=== PATIENT | male | born 1950 | race Caucasian/White ===

== ENCOUNTER 2019-07-18 14:20 | Inpatient (IN) | payer MEDICARE, OTHER ==
[~2019-07-18] VITALS: Ht 172.7 cm; Wt 93.9 kg
[2019-07-18 14:52] VITALS: BP 127/73
[2019-07-18 15:01] VITALS: BP 127/73
[2019-07-18 16:00] VITALS: BP 136/85
[2019-07-18] MEDS ORDERED: APIX5TAB MT (17:18)
[2019-07-18] MEDS ORDERED: CHOL200041 (17:18)
[2019-07-18] MEDS ORDERED: CLON0.2T MT (17:18)
[2019-07-18] MEDS ORDERED: FURO40TA5 MT (17:35)
[2019-07-18] MEDS ORDERED: CARV25TA47 MT (17:35)
[2019-07-18] MEDS ORDERED: DIGO250T79 MT (17:35)
[2019-07-18] MEDS ORDERED: GLIP5TAB12 MT (17:35)
[2019-07-18 18:00] VITALS: BP 132/81
[2019-07-18] MEDS ORDERED: BLOOD SUGAR DIAGNOSTIC STRIP TEST SCH (18:00)
[2019-07-18 19:02] LABS: BASOPHILS % 1.4 % (0.0-2.0); EOSINOPHILS % 3.1 % (0.0-5.0); HEMATOCRIT. 45.3 % (42.0-52.0); HEMOGLOBIN. 14.9 g/dL (14.0-18.0); LYMPHOCYTES % 14.3 % (20.0-50.0); MEAN CORPUSCULAR HEMOGLOBIN 30.8 pg (28.0-32.0); MEAN CORPUSCULAR VOLUME 93.9 fL (80.0-94.0); MEAN PLATELET VOLUME 8.6 fl (7.4-10.4); MONOCYTES % 5.5 % (2.0-8.0); NEUTROPHILS % 75.7 % (40.0-76.0); PLATELET 136 x1000/uL (130-400); RED BLOOD CELL COUNT 4.83 mill/uL (4.7-6.1); RED CELL DISTRIBUTION WIDTH 16.3 % (11.6-14.6)
[2019-07-18 20:00] VITALS: BP 124/76
[2019-07-18] MEDS: INSULIN LISPRO 100 UNITS/ML SUBCUT SCH (21:00)
[2019-07-18] MEDS: MILRINONE 20MG-DEXT 5% PREMIX 100 ML IV SCH ×2 (21:18→21:41)
[2019-07-18] MEDS: ATORVASTATIN CALCIUM 10MG TABLET PO SCH (21:18)
[2019-07-18] MEDS: BLOOD SUGAR DIAGNOSTIC STRIP TEST SCH (21:29)
[2019-07-18 22:00] VITALS: BP 122/52
[2019-07-19] VITALS (13 sets, daily range): BP systolic 105–147; BP diastolic 55–91
[2019-07-19] MEDS: MILRINONE 20MG-DEXT 5% PREMIX 100 ML IV SCH ×3 (05:04→23:25)
[2019-07-19] MEDS: BLOOD SUGAR DIAGNOSTIC STRIP TEST SCH ×4 (06:42→21:00)
[2019-07-19] MEDS: INSULIN LISPRO 100 UNITS/ML SUBCUT SCH ×4 (06:42→21:00)
[2019-07-19 07:03] LABS: EOSINOPHILS % 4.8 % (0.0-5.0); HEMATOCRIT. 42.9 % (42.0-52.0); HEMOGLOBIN. 14.3 g/dL (14.0-18.0); LYMPHOCYTES % 13.7 % (20.0-50.0); MEAN CORPUSCULAR VOLUME 92.8 fL (80.0-94.0); MEAN PLATELET VOLUME 8.6 fl (7.4-10.4); MONOCYTES % 13.6 % (2.0-8.0); NEUTROPHILS % 66.9 % (40.0-76.0); PLATELET 126 x1000/uL (130-400); RED BLOOD CELL COUNT 4.62 mill/uL (4.7-6.1); RED CELL DISTRIBUTION WIDTH 15.8 % (11.6-14.6)
[2019-07-19] MEDS: ENOXAPARIN 30MG/0.3ML SYR SUBCUT SCH (09:00)
[2019-07-19] MEDS: LOSARTAN POTASSIUM 25 MG TABLET PO SCH ×2 (09:01→17:36)
[2019-07-19] MEDS: AMLODIPINE 5MG TABLET PO SCH ×2 (09:01→23:26)
[2019-07-19] MEDS: FUROSEMIDE 40MG/4ML VIAL IVP SCH ×2 (09:01→17:36)
[2019-07-19] MEDS: ACETAMINOPHEN 325MG TABLET PO PRN (11:47)
[2019-07-19] MEDS: GLIPIZIDE 5MG TABLET PO SCH (17:36)
[2019-07-19] MEDS: ATORVASTATIN CALCIUM 10MG TABLET PO SCH (23:25)
[2019-07-20] VITALS (13 sets, daily range): BP systolic 113–138; BP diastolic 59–98
[2019-07-20] MEDS: ACETAMINOPHEN 325MG TABLET PO PRN ×3 (04:35→21:54)
[2019-07-20] MEDS: ENOXAPARIN 30MG/0.3ML SYR SUBCUT SCH ×3 (04:43→21:46)
[2019-07-20] MEDS: GLIPIZIDE 5MG TABLET PO SCH ×2 (06:02→16:56)
[2019-07-20] MEDS: MILRINONE 20MG-DEXT 5% PREMIX 100 ML IV SCH ×2 (06:05→16:52)
[2019-07-20] MEDS: INSULIN LISPRO 100 UNITS/ML SUBCUT SCH ×4 (06:06→21:00)
[2019-07-20] MEDS: BLOOD SUGAR DIAGNOSTIC STRIP TEST SCH ×4 (06:06→21:46)
[2019-07-20 06:37] LABS: EOSINOPHILS % 6.4 % (0.0-5.0); HEMATOCRIT. 43.1 % (42.0-52.0); HEMOGLOBIN. 14.3 g/dL (14.0-18.0); LYMPHOCYTES % 13.7 % (20.0-50.0); MEAN CORPUSCULAR HEMOGLOBIN 30.9 pg (28.0-32.0); MEAN CORPUSCULAR VOLUME 93.3 fL (80.0-94.0); MEAN PLATELET VOLUME 8.4 fl (7.4-10.4); MONOCYTES % 13.5 % (2.0-8.0); NEUTROPHILS % 65.4 % (40.0-76.0); PLATELET 125 x1000/uL (130-400); RED BLOOD CELL COUNT 4.62 mill/uL (4.7-6.1); RED CELL DISTRIBUTION WIDTH 15.4 % (11.6-14.6)
[2019-07-20] MEDS: FUROSEMIDE 40MG/4ML VIAL IVP SCH ×2 (08:30→16:56)
[2019-07-20] MEDS: AMLODIPINE 5MG TABLET PO SCH ×2 (08:31→21:45)
[2019-07-20] MEDS: LOSARTAN POTASSIUM 25 MG TABLET PO SCH ×2 (08:31→16:56)
[2019-07-20] MEDS: ATORVASTATIN CALCIUM 10MG TABLET PO SCH (21:46)
[2019-07-21] VITALS (12 sets, daily range): BP systolic 114–160; BP diastolic 63–91
[2019-07-21] MEDS: GLIPIZIDE 5MG TABLET PO SCH ×2 (06:01→18:22)
[2019-07-21] MEDS: MILRINONE 20MG-DEXT 5% PREMIX 100 ML IV SCH (06:01)
[2019-07-21 06:26] LABS: HEMATOCRIT. 46.1 % (42.0-52.0); HEMOGLOBIN. 15.6 g/dL (14.0-18.0); MEAN CORPUSCULAR HEMOGLOBIN 31.2 pg (28.0-32.0); MEAN CORPUSCULAR VOLUME 92.3 fL (80.0-94.0); MEAN PLATELET VOLUME 8.7 fl (7.4-10.4); PLATELET 139 x1000/uL (130-400); RED BLOOD CELL COUNT 4.99 mill/uL (4.7-6.1); RED CELL DISTRIBUTION WIDTH 15.6 % (11.6-14.6)
[2019-07-21 06:33] LABS: CHLORIDE 103 mEq/L (98-107)
[2019-07-21] MEDS: BLOOD SUGAR DIAGNOSTIC STRIP TEST SCH ×4 (06:44→20:28)
[2019-07-21] MEDS: INSULIN LISPRO 100 UNITS/ML SUBCUT SCH ×4 (06:45→20:28)
[2019-07-21] MEDS ORDERED: ONDANSETRON HCL 4MG/2ML INJ IV PRN (07:30)
[2019-07-21] MEDS ORDERED: TRAMADOL 50MG TABLET PO PRN (08:15)
[2019-07-21] MEDS: LOSARTAN POTASSIUM 25 MG TABLET PO SCH ×2 (08:25→16:45)
[2019-07-21] MEDS: AMLODIPINE 5MG TABLET PO SCH ×2 (08:26→20:29)
[2019-07-21] MEDS: ENOXAPARIN 30MG/0.3ML SYR SUBCUT SCH (08:28)
[2019-07-21] MEDS: FUROSEMIDE 40MG/4ML VIAL IVP SCH ×2 (08:30→16:44)
[2019-07-21 09:49] LABS: PLATELET ESTIMATE NORMAL
[2019-07-21] MEDS: APIXABAN 5 MG TABLET PO SCH ×2 (12:45→17:48)
[2019-07-21] MEDS: ACETAMINOPHEN 325MG TABLET PO PRN (12:46)
[2019-07-21] MEDS ORDERED: COR25 PO (16:11)
[2019-07-21] MEDS ORDERED: GABA-531 PO (16:12)
[2019-07-21] MEDS: DEXTROSE 50% WATER 50ML SYRINGE IV PRN (16:56)
[2019-07-21] MEDS: ATORVASTATIN CALCIUM 10MG TABLET PO SCH (20:28)
[2019-07-21] MEDS: METOLAZONE 5MG TABLET PO SCH (20:29)
[2019-07-22] VITALS (12 sets, daily range): BP systolic 109–143; BP diastolic 63–93
[2019-07-22] MEDS: DEXTROSE 50% WATER 50ML SYRINGE IV PRN ×3 (04:32→17:02)
[2019-07-22] MEDS: GLIPIZIDE 5MG TABLET PO SCH (05:57)
[2019-07-22] MEDS: BLOOD SUGAR DIAGNOSTIC STRIP TEST SCH ×4 (05:57→21:18)
[2019-07-22] MEDS: INSULIN LISPRO 100 UNITS/ML SUBCUT SCH ×4 (05:57→21:00)
[2019-07-22 07:23] LABS: HEMATOCRIT. 44.6 % (42.0-52.0); HEMOGLOBIN. 15.1 g/dL (14.0-18.0); MEAN CORPUSCULAR HEMOGLOBIN 31.5 pg (28.0-32.0); MEAN CORPUSCULAR VOLUME 93.3 fL (80.0-94.0); PLATELET 122 x1000/uL (130-400); RED BLOOD CELL COUNT 4.79 mill/uL (4.7-6.1); RED CELL DISTRIBUTION WIDTH 15.8 % (11.6-14.6)
[2019-07-22] MEDS: AMLODIPINE 5MG TABLET PO SCH ×2 (08:30→21:17)
[2019-07-22] MEDS: LOSARTAN POTASSIUM 25 MG TABLET PO SCH ×2 (08:30→17:46)
[2019-07-22] MEDS: APIXABAN 5 MG TABLET PO SCH ×2 (08:30→17:46)
[2019-07-22] MEDS: FUROSEMIDE 40MG/4ML VIAL IVP SCH ×2 (08:31→17:46)
[2019-07-22] MEDS: METOLAZONE 5MG TABLET PO SCH ×2 (08:31→21:17)
[2019-07-22 11:00] LABS: CHLORIDE 100 mEq/L (98-107)
[2019-07-22 11:45] LABS: ATYPICAL LYMPHOCYTES 1
[2019-07-22 11:49] LABS: PLATELET ESTIMATE SLIGHTLY DECREASED
[2019-07-22] MEDS ORDERED: DEXTROSE 50% WATER 50ML SYRINGE IV ONE ×2 (12:12→17:04)
[2019-07-22] MEDS ORDERED: FURO-151 PO (17:25)
[2019-07-22] MEDS ORDERED: METO10TA8 PO (17:25)
[2019-07-22] MEDS ORDERED: APIX5TAB PO (17:25)
[2019-07-22] MEDS ORDERED: LOSA25TA26 PO (17:25)
[2019-07-22] MEDS ORDERED: AMLO5TAB88 PO (17:25)
[2019-07-22] MEDS: ATORVASTATIN CALCIUM 10MG TABLET PO SCH (21:17)
[2019-07-23] VITALS (12 sets, daily range): BP systolic 103–158; BP diastolic 53–87
[2019-07-23] MEDS: BLOOD SUGAR DIAGNOSTIC STRIP TEST SCH ×4 (05:53→20:47)
[2019-07-23] MEDS: INSULIN LISPRO 100 UNITS/ML SUBCUT SCH ×4 (05:53→20:49)
[2019-07-23] MEDS: METOLAZONE 5MG TABLET PO SCH ×2 (08:45→21:05)
[2019-07-23] MEDS: APIXABAN 5 MG TABLET PO SCH (08:45)
[2019-07-23] MEDS: FUROSEMIDE 40MG/4ML VIAL IVP SCH ×2 (08:45→17:06)
[2019-07-23] MEDS: LOSARTAN POTASSIUM 25 MG TABLET PO SCH ×2 (08:46→17:06)
[2019-07-23] MEDS: AMLODIPINE 5MG TABLET PO SCH ×2 (08:49→21:42)
[2019-07-23] MEDS: MILRINONE 20MG-DEXT 5% PREMIX 100 ML IV SCH ×2 (12:41→21:14)
[2019-07-23] MEDS: ACETAMINOPHEN 325MG TABLET PO PRN (21:05)
[2019-07-23] MEDS: ATORVASTATIN CALCIUM 10MG TABLET PO SCH (21:05)
[2019-07-23] MEDS: ENOXAPARIN 100MG/ML SYR SUBCUT SCH (21:06)
[2019-07-24] VITALS (11 sets, daily range): BP systolic 94–143; BP diastolic 55–88
[2019-07-24] MEDS: ACETAMINOPHEN 325MG TABLET PO PRN (03:19)
[2019-07-24] MEDS: BLOOD SUGAR DIAGNOSTIC STRIP TEST SCH ×3 (06:28→16:50)
[2019-07-24] MEDS: FUROSEMIDE 40MG/4ML VIAL IVP SCH (06:29)
[2019-07-24] MEDS: MILRINONE 20MG-DEXT 5% PREMIX 100 ML IV SCH (06:33)
[2019-07-24 07:05] LABS: BASOPHILS % 1.1 % (0.0-2.0); HEMATOCRIT. 41.5 % (42.0-52.0); HEMOGLOBIN. 14.3 g/dL (14.0-18.0); LYMPHOCYTES % 11.2 % (20.0-50.0); MEAN CORPUSCULAR HEMOGLOBIN 31.5 pg (28.0-32.0); MEAN CORPUSCULAR VOLUME 91.4 fL (80.0-94.0); MEAN PLATELET VOLUME 8.9 fl (7.4-10.4); NEUTROPHILS % 70.7 % (40.0-76.0); PLATELET 135 x1000/uL (130-400); RED BLOOD CELL COUNT 4.54 mill/uL (4.7-6.1); RED CELL DISTRIBUTION WIDTH 15.3 % (11.6-14.6)
[2019-07-24] MEDS: INSULIN LISPRO 100 UNITS/ML SUBCUT SCH ×3 (07:20→17:20)
[2019-07-24] MEDS: METOLAZONE 5MG TABLET PO SCH (08:56)
[2019-07-24] MEDS: LOSARTAN POTASSIUM 25 MG TABLET PO SCH (08:57)
[2019-07-24] MEDS: AMLODIPINE 5MG TABLET PO SCH (08:57)
[2019-07-24] MEDS: ENOXAPARIN 100MG/ML SYR SUBCUT SCH (08:58)
[2019-07-24] MEDS ORDERED: POTASSIUM CHLORIDE 20MEQ TABLET SR PO SCH (11:15)
== END 2019-07-24 20:07 | disposition home or self-care (01) | DRG 291 ==
LOC: 3WST 14:20
PROVIDERS: ADMIT Internal Medicine Clinical Cardiac Electrophysiology; ATTEND Internal Medicine Clinical Cardiac Electrophysiology
DX: I13.0 Hypertensive heart and chronic kidney disease with heart failure and stage 1 through stage 4 chronic kidney disease, or unspecified chronic kidney disease (principal); I50.23 Acute on chronic systolic (congestive) heart failure; I48.20 Chronic atrial fibrillation, unspecified; R18.8 Other ascites; I42.8 Other cardiomyopathies; N18.9 Chronic kidney disease, unspecified; E78.5 Hyperlipidemia, unspecified; I44.7 Left bundle-branch block, unspecified; R00.1 Bradycardia, unspecified; E78.00 Pure hypercholesterolemia, unspecified; I25.10 Atherosclerotic heart disease of native coronary artery without angina pectoris; E11.22 Type 2 diabetes mellitus with diabetic chronic kidney disease; Z95.810 Presence of automatic (implantable) cardiac defibrillator
CPT/HCPCS: 36415; 80048; 82962; 83036; 83735; 85025; 93005; 93306; 93970; J1650; J1815; J1940; J2260; J2405

== ENCOUNTER 2019-07-28 09:06 | Inpatient (IN) | payer MEDICARE, OTHER ==
[~2019-07-28] VITALS: Ht 172.7 cm; Wt 90.3 kg
[~2019-07-28 09:06] MED LIST: COR25 PO; DIGO250T79 MT; FURO40TA5 MT; GABA-531 PO; GLIP5TAB12 MT
[2019-07-28 10:31] LABS: BASOPHILS % 0.9 % (0.0-2.0); EOSINOPHILS % 2.3 % (0.0-5.0); HEMATOCRIT. 46.8 % (42.0-52.0); HEMOGLOBIN. 15.5 g/dL (14.0-18.0); LYMPHOCYTES % 7.8 % (20.0-50.0); MEAN CORPUSCULAR HEMOGLOBIN 30.5 pg (28.0-32.0); MEAN CORPUSCULAR VOLUME 92.1 fL (80.0-94.0); MEAN PLATELET VOLUME 8.3 fl (7.4-10.4); MONOCYTES % 10.7 % (2.0-8.0); NEUTROPHILS % 78.3 % (40.0-76.0); PLATELET 176 x1000/uL (130-400); RED BLOOD CELL COUNT 5.09 mill/uL (4.7-6.1); RED CELL DISTRIBUTION WIDTH 15.6 % (11.6-14.6)
[2019-07-28 10:36] LABS: INR 1.1; PARTIAL THROMBOPLASTIN TIME 29.8 sec (23.4-31.0); PROTHROMBIN TIME 11.9 sec (9.6-11.0)
[2019-07-28] MEDS ORDERED: CHOL3000 PO (12:50)
[2019-07-28] MEDS ORDERED: CLON0.2T PO (12:50)
[2019-07-28] MEDS ORDERED: APIX5TAB PO (12:50)
[2019-07-28] MEDS ORDERED: METO5TAB7 PO (12:50)
[2019-07-28] MEDS ORDERED: IODIXANOL 320MG/ML 100 ML BOTTLE IV ONE (14:25)
[2019-07-28] MEDS ORDERED: GENTAMICIN SULF 40MG/ML 2ML VIAL ONE (14:25)
[2019-07-28] MEDS ORDERED: LIDOCAINE HCL 1% 20ML VIAL (Pyxis) INJ ONE (14:26)
[2019-07-28] MEDS ORDERED: FENTANYL CITRATE/PF 50MCG/ML 2ML VIAL ONE ×2 (15:28→17:05)
[2019-07-28] MEDS ORDERED: MIDAZOLAM HCL 2 MG/2 ML VIAL ONE ×2 (15:28→15:31)
[2019-07-28] MEDS ORDERED: PROPOFOL 200MG/20ML VIAL IV ONE ×2 (15:28→17:08)
[2019-07-28] MEDS ORDERED: DEXAMETHASONE 4MG/ML 1ML VIAL ONE (15:31)
[2019-07-28] MEDS ORDERED: ONDANSETRON HCL 4MG/2ML INJ ONE (15:31)
[2019-07-28] MEDS ORDERED: GENTAMICIN/NS IRRIGATION 500 ML IR ONE (15:38)
[2019-07-28] MEDS ORDERED: LABETALOL 5MG/ML SYR 20 MG/4 ML SYRINGE IV PRN (16:00)
[2019-07-28] MEDS ORDERED: HYDROMORPHONE HCL/PF 2MG/ML CPJ IV PRN (16:00)
[2019-07-28] MEDS ORDERED: MEPERIDINE HCL/PF 25MG/ML CPJ IV PRN (16:00)
[2019-07-28] MEDS ORDERED: ONDANSETRON HCL 4MG/2ML INJ IV PRN (16:00)
[2019-07-28] MEDS ORDERED: HYDROCODONE/ACETAMINOPHEN 5/325MG TABLET PO PRN (17:45)
[2019-07-28 21:30] VITALS: BP 135/86
[2019-07-28 22:00] VITALS: BP 136/86
[2019-07-29] VITALS (10 sets, daily range): BP systolic 123–162; BP diastolic 74–82
[2019-07-29 06:44] LABS: HEMATOCRIT. 46.3 % (42.0-52.0); HEMOGLOBIN. 15.9 g/dL (14.0-18.0); MEAN CORPUSCULAR VOLUME 90.5 fL (80.0-94.0); MEAN PLATELET VOLUME 8.6 fl (7.4-10.4); PLATELET 180 x1000/uL (130-400); RED BLOOD CELL COUNT 5.11 mill/uL (4.7-6.1); RED CELL DISTRIBUTION WIDTH 15.1 % (11.6-14.6)
[2019-07-29] MEDS ORDERED: GLIPIZIDE 5MG TABLET PO SCH (07:30)
[2019-07-29] MEDS ORDERED: CLONIDINE 0.2MG TABLET PO SCH (09:00)
[2019-07-29] MEDS ORDERED: FUROSEMIDE 40MG TABLET PO SCH (09:00)
[2019-07-29] MEDS ORDERED: CARVEDILOL 12.5MG TABLET PO SCH (09:00)
[2019-07-29 14:53] LABS: PLATELET ESTIMATE NORMAL
[2019-07-29] MEDS ORDERED: DIGOXIN 250MCG TABLET PO SCH (18:00)
[2019-07-29] MEDS ORDERED: APIXABAN 5 MG TABLET PO SCH (21:00)
== END 2019-07-29 19:36 | disposition home or self-care (01) | DRG 224 ==
LOC: CCL 09:06 → 5EST 22:50
PROVIDERS: ADMIT Internal Medicine Clinical Cardiac Electrophysiology; ATTEND Internal Medicine Clinical Cardiac Electrophysiology
PROC: 0JH609Z Insertion of Cardiac Resynchronization Defibrillator Pulse Generator into Chest Subcutaneous Tissue and Fascia, Open Approach (ICD-10-PCS; principal; 2019-07-28)
PROC: 02HK3KZ Insertion of Defibrillator Lead into Right Ventricle, Percutaneous Approach (ICD-10-PCS; 2019-07-28)
PROC: 4A023N6 Measurement of Cardiac Sampling and Pressure, Right Heart, Percutaneous Approach (ICD-10-PCS; 2019-07-28)
PROC: 02HL3KZ Insertion of Defibrillator Lead into Left Ventricle, Percutaneous Approach (ICD-10-PCS; 2019-07-28)
PROC: B5171ZZ Fluoroscopy of Left Subclavian Vein using Low Osmolar Contrast (ICD-10-PCS; 2019-07-28)
PROC: B2111ZZ Fluoroscopy of Multiple Coronary Arteries using Low Osmolar Contrast (ICD-10-PCS; 2019-07-28)
PROC: 02H43KZ Insertion of Defibrillator Lead into Coronary Vein, Percutaneous Approach (ICD-10-PCS; 2019-07-28)
DX: I44.7 Left bundle-branch block, unspecified (principal); I50.23 Acute on chronic systolic (congestive) heart failure; I42.0 Dilated cardiomyopathy; E87.1 Hypo-osmolality and hyponatremia; I48.21 Permanent atrial fibrillation; I11.0 Hypertensive heart disease with heart failure; E11.9 Type 2 diabetes mellitus without complications; E78.5 Hyperlipidemia, unspecified; I25.10 Atherosclerotic heart disease of native coronary artery without angina pectoris; I27.20 Pulmonary hypertension, unspecified
CPT/HCPCS: 33225; 33249; 36415; 71045; 75820; 80048; 82962; 85025; 93005; 93451; 93641; C1769; C1882; C1887; C1893; C1899; C1900; J1100; J1580; J1644; J2250; J2405; J2704; J3010; J3490; Q9967

== ENCOUNTER 2019-08-12 04:32 | Emergency (ER) | payer MEDICARE, OTHER ==
[~2019-08-12] VITALS: Ht 172.7 cm; Wt 79.0 kg
[~2019-08-12 04:32] MED LIST changes: +APIX5TAB PO; +CHOL3000 PO; +CLON0.2T PO; -GABA-531 PO; +METO5TAB7 PO
[2019-08-12 04:52] VITALS: BP 134/80
[2019-08-12] MEDS ORDERED: IBUPROFEN 600MG TABLET PO ONE (06:00)
[2019-08-12] MEDS ORDERED: ACETAMINOPHEN 325MG TABLET PO ONE (06:45)
[2019-08-12] MEDS ORDERED: CEPHALEXIN 250MG CAPSULE PO ONE (06:45)
== END 2019-08-12 08:27 | disposition home or self-care (01) ==
LOC: ER 04:32
DX: S82.491A Other fracture of shaft of right fibula, initial encounter for closed fracture (principal); L03.115 Cellulitis of right lower limb; E11.9 Type 2 diabetes mellitus without complications; I10 Essential (primary) hypertension; I48.91 Unspecified atrial fibrillation; Z95.0 Presence of cardiac pacemaker; Z98.890 Other specified postprocedural states; Z79.899 Other long term (current) drug therapy
CPT/HCPCS: 73610; 73630; 93971; 99284